=== PATIENT | male | born 1950 | race Caucasian/White ===

== ENCOUNTER 2019-04-13 06:40 | Day surgery (SDC) | payer OTHER ==
[~2019-04-13 06:40] MED LIST: ATORVASTATIN CA10 MG PO; ELIQUIS5 MG PO; GLUMETZA500 MG PO; LANOXIN125 MCG PO; SYNTHROID50 MCG PO
== END 2019-04-13 14:00 | disposition home or self-care (01) ==
LOC: CIR.AMB 06:40
DX: M47.812 Spondylosis without myelopathy or radiculopathy, cervical region (principal)